=== PATIENT | female | born 1995 | race American Indian/Alaskan Native ===

== ENCOUNTER 2017-10-22 18:02 | Emergency (ER) | payer OTHER ==
--- NOTE | 2017-10-22 18:10 | ED PDOC ---
Arrival/HPI - General Time Seen by Provider: 10/22/17 18:10 Historian: Patient - History of Present Illness Narrative History of Present Illness (Text): 10/22/17 18:10 22 y/o female, no significant pmh, nkda, c/o lt. breast lump x 2 days with no fall or trauma. pt. stated that she has a painful pimple on the left breast x 2 days, been having pain, aggravated by touching, went to the [facility] which they perform the needle aspiration and there is no fluid drainage, discharge home with the keflex/motrin/zyrtec. Pt. is here at the ER for second evaluation , no worsening of the pain, no nipple discharge, no headache or night sweat, no rash, no other medical or psychological complaints. Past Medical History - Provider Review Nursing Documentation Reviewed: Yes Family/Social History - Physician Review Nursing Documentation Reviewed: Yes Family/Social History: Unknown Family HX Allergies/Home Meds Allergies/Adverse Reactions: Allergies No Known Allergies Allergy (Verified 10/22/17 18:38) Review of Systems - Review of Systems Constitutional: absent: Fatigue, Fevers Eyes: absent: Vision Changes ENT: absent: Hearing Changes Respiratory: absent: SOB, Cough Cardiovascular: absent: Chest Pain Gastrointestinal: absent: Abdominal Pain, Nausea, Vomiting Musculoskeletal: absent: Arthralgias, Back Pain Skin: Rash, Skin Lesions. absent: Pruritis, Laceration, Abscess, Ulcer, Cellulitis Neurological: absent: Headache, Dizziness Psychiatric: absent: Anxiety, Depression, Suicidal Ideation Physical Exam Vital Signs Reviewed: Yes Vital Signs Temp Pulse Resp BP Pulse Ox 10/22/17 18:16 98.1 F 98 H 18 149/85 100 Temperature: Afebrile Blood Pressure: Normal Pulse: Regular Respiratory Rate: Normal Appearance: Positive for: Well-Appearing, Non-Toxic, Comfortable Pain Distress: Mild Mental Status: Positive for: Alert and Oriented X 3 - Systems Exam Head: Present: Atraumatic, Normocephalic Pupils: Present: PERRL Extroacular Muscles: Present: EOMI Conjunctiva: Present: Normal Mouth: Present: Moist Mucous Membranes Neck: Present: Normal Range of Motion Respiratory/Chest: Present: Clear to Auscultation, Good Air Exchange. No: Respiratory Distress, Accessory Muscle Use Cardiovascular: Present: Regular Rate and Rhythm, Normal S1, S2. No: Murmurs Abdomen: No: Tenderness, Distention, Peritoneal Signs Back: Present: Normal Inspection Upper Extremity: Present: Normal Inspection. No: Cyanosis, Edema Lower Extremity: Present: Normal Inspection. No: Edema Neurological: Present: GCS=15, CN II-XII Intact, Speech Normal, Motor Func Grossly Intact, Gait Normal, Memory Normal Skin: Present: Warm, Dry, Rashes (Lt. medial upper breast region visibble and palpable approx. 1.5cm diameter indurated non-fluctuant lesion noted, no cellulitis or streaking, no ulcers, no regional lymphenopathy), Normal Color Psychiatric: Present: Alert, Oriented x 3, Normal Insight, Normal Concentration Medical Decision Making ED Course and Treatment: 10/22/17 18:53 -Urine hcg is negative. -labs reviewed from the [facility] which the patient has show no elevation of wbc. Pt. is afebrile as well. -I advised the patient to have heat compression, will add bactrim ds to her initial treatment plan for MRSA coverage especially she had needle aspiration. -Discharge home with bactrim ds, continue your medication as you were prescribe initially at other ER, return to the ER for any new or worsening signs or symptoms. - PA / [employer]PERATOR / Resident Statement MD/DO has reviewed & agrees with the documentation as recorded. Disposition/Present on Arrival - Present on Arrival Any Indicators Present on Arrival: No History of DVT/PE: No History of Uncontrolled Diabetes: No Urinary Catheter: No History of Decub. Ulcer: No - Disposition Have Diagnosis and Disposition been Completed?: Yes Diagnosis: Furuncle Disposition: HOME/ ROUTINE Disposition Time: 18:54 Patient Plan: Discharge Condition: GOOD Additional Instructions: -Discharge home with bactrim ds, continue your medication as you were prescribe initially at other ER, return to the ER for any new or worsening signs or symptoms. Prescriptions: Sulfamethoxazole/Trimethoprim [Bactrim DS 800 mg-160 mg] 1 tab PO BID #14 tab Referrals: Nishant Oquendo [Primary Care Provider] - Follow up with primary Myriam Maradiaga MD [Staff Provider] - Follow up with primary Forms: WORK NOTE
[2017-10-22 18:17] VITALS: BP 149/85; PULSE 98; RESP 18; TEMP 98.1; O2SAT 100
== END 2017-10-22 19:22 | disposition home or self-care (01) ==
LOC: ED 18:02
DX: L02.828 Furuncle of other sites (principal)